=== PATIENT | female | born 1970 | race Caucasian/White ===

== ENCOUNTER → 2017-09-16 | Outpatient (CLI) | payer BC, OTHER ==
[~2017-09-16] VITALS: Ht 167.6 cm; Wt 58.1 kg
[~2017-09-16] MED LIST: IBUPROFEN200 M1 PO; LUNESTA3 MG PO; XANAX 0.5 MG0.5 MG PO
--- NOTE | ~2017-09-16 | HPC ---
[facility] [address] [address] PAIN MANAGEMENT CONSULTATION Name: HOANG RASHEED Room #: REG [facility].#: [id number] Admission: 09/16/17 Attend Phys: Juan Alberto Michael DO Discharge: Date of : 74 Report #: [id number] THIS REPORT FOR: //name// CC: Michelle Stroud MD DATE OF SERVICE: 09/16/2017 PRIMARY CARE PHYSICIAN: Dr. Francisco. CHIEF COMPLAINT: Neck pain, left upper extremity pain and paresthesias. HISTORY OF PRESENT ILLNESS: As you know, the patient is extremely pleasant 46-year-old female with a 1-year history of neck pain, left upper extremity pain with paresthesias. The patient has trialled kazw-kyz-[id number] medications in the form of ibuprofen and Tylenol for treatment. She has also sought evaluation through physical therapy. Despite these conservative treatment options, the patient continues to experience pain at a level of 6-7/10. The patient ultimately underwent imaging of the cervical spine, which shows a paracentral disk herniation at C6-C7 that is concerning for the patient's symptom development. She was sent to [facility] where she saw ENGINE TURNER and advised to trial more conservative treatment options such as cervical epidural injection, she was subsequently referred to our clinic to discuss options for treatment. She indicates pain is continuous, steady and constant, describes the pain as burning, shooting, aching, sharp, stabbing, numbness and tingling; places current pain score 6/10, daily average of 6/10, worst pain has been is 10/10. The patient states stretching, bending her neck and certain activities improves symptoms, physical therapy provides good improvement in symptoms, but is not sustainable. She has been referred to our clinic to discussed options for treatment. PAST MEDICAL HISTORY: 1. Emotional problems. 2. Degenerative joint disease. 3. Osteoarthritis. PAST SURGICAL HISTORY: 1. Tibial plateau fracture repair. 2. Knee arthroscopy. SOCIAL HISTORY: The patient denies tobacco, alcohol, IV or illicit drug use. She works in [employer]. She is working, not receiving workmen's compensation nor is she trying to obtain disability benefits. She is unaccompanied at today's visit. She is not in litigation in regards to her pain. [address] [address] PAIN MANAGEMENT CONSULTATION Name: HOANG RASHEED Room #: REG [facility]#: [id number] Admission: 09/16/17 Attend Phys: Juan Alberto Michael DO Discharge: Date of : 74 Report #: [id number] REVIEW OF SYSTEMS: Positive for decrease in appetite, fatigue, weakness, headaches, wearing corrective eyewear, blurred and double vision, hearing loss with tinnitus, nosebleeds, mouth sores, shortness of breath with walking or lying flat, palpitations, asthma, wheezing, loss of appetite, changes in bowel movements, constipation, changes in hair and nail texture, breast pain, frequent and recurrent headaches, lightheadedness and dizziness, numbness and tingling sensations, memory loss with confusion, nervousness, insomnia, excessive thirst, urination, heat and cold intolerance, bleeding and bruising tendencies. All other review of systems negative per 12-point review of systems other than those listed in history of present illness. PAIN IMPACT SCORE: 54/70 indicating severe interference of daily activities secondary to pain. ALLERGIES: No known drug allergies. CURRENT MEDICATIONS: Alprazolam 0.5 mg p.o. at bedtime, Lunesta 3 mg p.o. at bedtime, and ibuprofen 1000 mg per week. IMAGING: MRI of the cervical spine obtained on 07/24/2017, shows C2-C3, C3-C4, and C4-C5 unremarkable. C5-C6, no significant central disk protrusions, no central canal neural foraminal stenosis. C6-C7 shows a small left paracentral disk herniation extending slightly cephalad touching, but not indenting the spinal cord. Central canal is mildly narrowed to 8 mm, minimal left, no right neural foraminal stenosis. C7-T1 and T1-T2 unremarkable. PHYSICAL EXAMINATION: VITAL SIGNS: Blood pressure 118/65, pulse 79, respiratory rate 14 and unlabored, the patient is 100% on room air, height 5 feet 6 inches tall, weight 128 pounds, BMI calculated 20.7. GENERAL: Well-developed, well-nourished, well-hydrated 46-year-old female, appears her stated age, placing current pain score around 6/10. HEENT: Normocephalic, atraumatic. Pupils are equal, round, reactive to light. Extraocular muscles are intact. Sclerae are nonicteric without injection. NEUROLOGIC: Cranial nerves 2-12 are grossly intact. Speech is fluent. The patient deemed an excellent historian. LUNGS: Clear, no wheeze, rhonchi or rales. CARDIOVASCULAR: Regular. No appreciable gallop or rub. ABDOMEN: Soft, nontender, nondistended, normoactive bowel sounds. EXTREMITIES: Show no clubbing, no cyanosis, no edema. MUSCULOSKELETAL: Upper extremity strength appears equal and symmetrical 5/5. She remains intact to light touch from C5 through T1 dermatomes. Deep tendinous reflexes are symmetrical at biceps, brachioradialis and triceps. Muscle bulk and tone symmetrical in the upper extremities. Cervical provocation testing leads to no increase in pain. Spurling's test is positive left, negative right. [facility] [address] [place] [address] PAIN MANAGEMENT CONSULTATION Name: HOANG RASHEED Room #: [facility].#: [id number] Admission: 09/16/17 Attend Phys: Juan Alberto Michael DO Discharge: Date of : 74 Report #: [id number] ASSESSMENT: 1. Cervical radiculopathy. 2. Displacement of cervical intervertebral disk with radiculopathy. 3. Chronic intractable pain. PLAN: 1. The patient has been referred to our service for evaluation for cervical radiculopathy. Given the findings in physical exam, the history she provides, the distribution of symptoms and the changes noted on the MRI, the likely source of the patient's pain is a cervical radiculopathy. We discussed with the patient the treatment options we have available for cervical radicular symptoms, these would include the following. The patient and I discussed physical therapy, stretching exercises with traction techniques, traction has not been trialled in the PT evaluation and I think this could be extremely beneficial in alleviating the patient's symptoms given the size of the disk protrusion noted at the C6-C7 level, this could significantly improve the patient's overall pain. We discussed medication management with neuropathic medications in the form of either gabapentin, Lyrica for neuropathy pain, also the addition of a nonsteroidal anti-inflammatory that the patient can take on a consistent basis. We discussed the requested cervical epidural injection as a treatment option and surgical options. After reviewing the risks and benefits of all the proposed treatment options, the patient chose to remain relative conservative in her treatment and has chosen to make adjustments in her physical therapy sessions and to initiate a nonsteroidal anti-inflammatory therapy. 2. We have provided the patient with a change order to be provided to her physical therapist to begin traction techniques along with current treatment. I have requested that they adjust their treatment to concentrate on the cervical region and less concentration on the left upper extremity. Hopefully, the changes in direction of treatment will improve the patient's overall pain. She does indicate that pain relief is noted after physical therapy, but is not sustained. I am hopeful that with the changes made today, the physical therapy will be much more effective. 3. The patient will be started on Zipsor or 25 mg dose 1 tab p.o. b.i.d., I have given the patient the Zipsor, she is having some side effects with ibuprofen therapy and this is causing GI upset, she does indicate a potential SULFA intolerance, though she does not list this as an actual allergy. As you are aware, Zipsor has no sulfa in the chemical formula and she should not have issues with the Zipsor. I have also noted that Zipsor in the liquid gel form tends to be much more gentle on the GI tract, which she is not noticing with the ibuprofen. I am hopeful that a consistent use of Zipsor will provide the patient good and prolonged improvement in symptoms. 4. We will see the patient back in followup visit on an as needed basis. At this point, she wishes to try physical therapy and the Zipsor treatment. If [address] [address] PAIN MANAGEMENT CONSULTATION Name: HOANG RASHEED Room #: REG [facility]#: [id number] Admission: 09/16/17 Attend Phys: Juan Alberto Michael DO Discharge: Date of : 74 Report #: [id number] this is ineffective, she will return to discuss the possibility of moving forward with a cervical epidural injection if necessary. I am hopeful that she will see improvement with more conservative treatment, but we will be available to see her back to undergo cervical epidural injection upon request. 5. We wish to thank the nurse practitioner, for the opportunity to see the patient in consultation. We will keep you apprised of her response to treatment as we address her cervical radicular symptoms involving the left upper extremity. Again, we wish to thank you for the opportunity to see her in consultation. <ELECTRONICALLY SIGNED> By: Juan Alberto Michael DO 09/23/17 0810 0801 [id number] Juan Alberto Michael DO /nt
[2017-09-16 09:11] VITALS: BP 118/65
== END ==
LOC: PAIN 09-15 07:30
DX: M54.12 Radiculopathy, cervical region (principal); G89.4 Chronic pain syndrome